=== PATIENT | female | born 1995 | race Caucasian/White ===

== ENCOUNTER 2022-12-11 11:49 | Emergency (ER) | payer OTHER ==
[~2022-12-11] VITALS: Ht 167.6 cm; Wt 71.3 kg
[2022-12-11] MEDS ORDERED: VIEN1TAB PO (11:59)
[2022-12-11] MEDS ORDERED: ONDA4TAB6 PO (11:59)
[2022-12-11 13:16] LABS: BASO % 0.4 % (0.0-1.0); HEMATOCRIT 41.3 % (36.0-47.0); HEMOGLOBIN 13.6 g/dl (12.0-15.5); LYMPH # 1.1 10^3/uL (1.5-5.0); MEAN CORPUSCULAR HEMOGLOBIN 28.3 pg (27.0-33.0); MEAN CORPUSCULAR HGB CONC 32.9 g/dl (32.0-36.5); MONO # 0.2 10^3/uL (0.0-0.8); MONO % 2.9 % (2.0-8.0); NEUTROPHILS # 5.6 10^3/uL (1.5-8.5); NEUTROPHILS % 80.4 % (36.0-66.0); PLATELET COUNT, AUTOMATED 294 10^3/uL (150-450); WHITE BLOOD COUNT 6.9 10^3/uL (4.0-10.0)
[2022-12-11 13:46] LABS: LIPASE 39 U/L (12-53)
[2022-12-11 13:48] LABS: ALBUMIN 4.4 G/DL (3.2-5.2); ALKALINE PHOSPHATASE 51 U/L (46-116); ALT/SGPT 12 U/L (7.0-40); AST/SGOT 11 U/L (<34); BILIRUBIN,DIRECT 0.2 MG/DL (<0.4); BILIRUBIN,TOTAL 0.6 MG/DL (0.3-1.2); BLOOD UREA NITROGEN 6 MG/DL (9-23); CALCIUM LEVEL 9.7 MG/DL (8.5-10.1); CARBON DIOXIDE LEVEL 26 MMOL/L (20-31); CHLORIDE LEVEL 106 MMOL/L (98-107); CREATININE FOR GFR 0.95 MG/DL (0.55-1.30); GLOMERULAR FILTRATION RATE > 60.0 (>60); GLUCOSE, FASTING 84 MG/DL (60-100); POTASSIUM SERUM 4.4 MMOL/L (3.5-5.1); SODIUM LEVEL 141 MMOL/L (136-145); TOTAL PROTEIN 7.5 G/DL (5.7-8.2)
[2022-12-11 13:52] LABS: HCG, SERUM QUALITATIVE NEGATIVE (NEGATIVE)
[2022-12-11] MEDS ORDERED: KETOROLAC 30 MG/ML 1ML VIAL IV ONE (14:15)
[2022-12-11] MEDS ORDERED: NS 1,000 ML IV ONE (14:15)
[2022-12-11] MEDS ORDERED: ISOVUE-370 76% 100ML VIAL As Ordered ONE (14:26)
[2022-12-11 14:45] VITALS: BP 117/70; TEMP 97.8; O2SAT 100
[2022-12-11] MEDS ORDERED: CIPR-249 PO (15:29)
[2022-12-11] MEDS ORDERED: METR-265 PO (15:29)
== END 2022-12-11 15:46 | disposition home or self-care (01) ==
LOC: M ED 11:49
DX: K51.20 Ulcerative (chronic) proctitis without complications (principal); F12.10 Cannabis abuse, uncomplicated
CPT/HCPCS: 74177; 80048; 80076; 83690; 84703; 85025; 96361; 96374; 99284; J1885; Q9967

== ENCOUNTER → 2023-03-20 | Outpatient (CLI) | payer OTHER ==
[~2023-03-20] MED LIST: CIPR-249 PO; E-Z-GAS II EFFERVESCENT PACKET (SODIUM BICARB./CITRIC ACID/SIMETHICONE) As Ordered ONE; E-Z-HD 98% w/w 340GM SUSP BTL As Ordered ONE; E-Z-PAQUE 96% w/w SUSP 176GM BTL As Ordered ONE; METR-265 PO; ONDA4TAB6 PO; VIEN1TAB PO
== END ==
LOC: M RAD 09:18
PROVIDERS: ATTEND Internal Medicine Gastroenterology
DX: K59.00 Constipation, unspecified (principal); R10.9 Unspecified abdominal pain

== ENCOUNTER 2023-07-24 07:45 | Day surgery (SDC) | payer OTHER ==
[~2023-07-24] VITALS: Ht 167.6 cm; Wt 60.0 kg
[~2023-07-24 07:45] MED LIST changes: -E-Z-GAS II EFFERVESCENT PACKET (SODIUM BICARB./CITRIC ACID/SIMETHICONE) As Ordered ONE; -E-Z-HD 98% w/w 340GM SUSP BTL As Ordered ONE; -E-Z-PAQUE 96% w/w SUSP 176GM BTL As Ordered ONE; +ONDA-282 PO; -ONDA4TAB6 PO; +PANT20TA6 PO
[2023-07-24] MEDS ORDERED: propofoL 200 MG/20 ML VIAL As Ordered ONE (08:12)
[2023-07-24] MEDS ORDERED: MIDAZOLAM INJ 2MG/2ML VIAL As Ordered ONE (08:12)
[2023-07-24] MEDS ORDERED: ROCURONIUM BROMIDE 50MG/5ML VIAL As Ordered ONE (08:12)
[2023-07-24] MEDS ORDERED: fentaNYL 100 MCG/2 ML INJECTION As Ordered ONE (08:12)
[2023-07-24] MEDS ORDERED: LIDOCAINE 2% 100MG/5ML SDV (FOR ANES.) As Ordered ONE (08:12)
[2023-07-24 08:24] LABS: HEMATOCRIT 42.8 % (36.0-47.0); HEMOGLOBIN 14.2 g/dl (12.0-15.5)
[2023-07-24] MEDS: LR 1,000 ML IV SCH ×2 (08:29→10:53)
[2023-07-24] MEDS ORDERED: KETOROLAC 60MG 2ML VIAL As Ordered ONE (09:58)
[2023-07-24] MEDS ORDERED: fentaNYL 100 MCG/2 ML INJECTION IV PRN (10:45)
[2023-07-24] MEDS: ONDANSETRON 4MG 2ML VIAL IV PRN (11:03)
[2023-07-24] MEDS: oxyCODONE 5MG TAB PO PRN (11:03)
[2023-07-24] MEDS: HYDROMORPHONE HCL 0.5 MG/ 0.5 ML SYRINGE IV PRN (11:04)
[2023-07-24 11:32] VITALS: BP 129/74; TEMP 97.4; O2SAT 100
== END 2023-07-24 12:25 | disposition home or self-care (01) ==
LOC: M SDC 07:45
PROVIDERS: ATTEND Obstetrics & Gynecology
DX: Z30.2 Encounter for sterilization (principal); F12.10 Cannabis abuse, uncomplicated; K58.8 Other irritable bowel syndrome; R11.0 Nausea; Z79.899 Other long term (current) drug therapy
CPT/HCPCS: 36415; 58661; 81025; 85014; 85018; 88302; J0665; J1100; J1170; J1885; J2250; J2405; J3010

== ENCOUNTER 2024-08-19 06:20 | Day surgery (SDC) | payer OTHER ==
[~2024-08-19] VITALS: Ht 167.6 cm; Wt 57.0 kg
[~2024-08-19 06:20] MED LIST changes: +FEXO-63 PO; +FLUTISP; +GABA-1172 PO
[2024-08-19 06:48] LABS: PLATELET COUNT, AUTOMATED 320 10^3/uL (150-450)
[2024-08-19] MEDS ORDERED: LR 1,000 ML IV SCH (06:55)
[2024-08-19] MEDS ORDERED: LIDOCAINE 2% 100 MG/5 ML SDV (FOR ANES.) As Ordered ONE (07:19)
[2024-08-19] MEDS ORDERED: ONDANSETRON 4MG 2ML VIAL As Ordered ONE (07:19)
[2024-08-19] MEDS ORDERED: dexAMETHasone 4 MG/ML 1 ML VIAL As Ordered ONE (07:19)
[2024-08-19] MEDS ORDERED: ROCURONIUM BROMIDE 50MG/5ML VIAL As Ordered ONE (07:19)
[2024-08-19] MEDS ORDERED: MIDAZOLAM INJ 2 MG/2 ML VIAL As Ordered ONE (07:20)
[2024-08-19] MEDS ORDERED: dexmedeTOMIDine (4 MCG/ML) 200 MCG/50 ML BTL As Ordered ONE (07:20)
[2024-08-19] MEDS: metroNIDAZOLE 500 MG in IV 1 EA IV ONE (07:25)
[2024-08-19] MEDS ORDERED: LIDOCAINE 5% OINT 30 GM TUBE As Ordered ONE (07:42)
[2024-08-19] MEDS: SCOPOLAMINE 1MG TRANSDERMAL PATCH As Ordered ONE (07:43)
[2024-08-19] MEDS: SCOPOLAMINE 1MG TRANSDERMAL PATCH TOP ONE (07:45)
[2024-08-19] MEDS: ceFAZolin SOD 2 GM IV ONCE IV ONE (08:04)
[2024-08-19] MEDS ORDERED: LACRILUBE (AKWA TEARS) OPHTH OINT 3.5 GM As Ordered ONE (08:05)
[2024-08-19] MEDS ORDERED: PHENYLephrine 500MCG 5ML (100MCG/ML) SYRINGE As Ordered ONE (08:05)
[2024-08-19] MEDS ORDERED: ACETAMINOPHEN 1000MG/100ML IV BAG As Ordered ONE (08:05)
[2024-08-19] MEDS ORDERED: KETOROLAC 30 MG/ML 1 ML VIAL As Ordered ONE (08:38)
[2024-08-19] MEDS ORDERED: HYDROmorphone HCL 2 MG/ML 1 ML VIAL As Ordered ONE (08:38)
[2024-08-19] MEDS ORDERED: SUGAMMADEX SODIUM 200 MG/2 ML VIAL As Ordered ONE (08:38)
[2024-08-19] MEDS ORDERED: SUGAMMADEX SODIUM 500 MG/5 ML VIAL As Ordered ONE (08:39)
[2024-08-19] MEDS: ONDANSETRON 4MG 2ML VIAL IV PRN (10:48)
[2024-08-19] MEDS: HYDROMORPHONE HCL 0.5 MG/0.5 ML SYRINGE IV PRN (10:48)
[2024-08-19] MEDS: PROMETHAZINE 25MG/ML 1ML VIAL IV PRN (12:09)
[2024-08-19 13:00] VITALS: BP 132/79; TEMP 98; O2SAT 100
== END 2024-08-19 13:30 | disposition home or self-care (01) ==
LOC: M SDC 06:20
PROVIDERS: ATTEND Obstetrics & Gynecology
DX: N93.9 Abnormal uterine and vaginal bleeding, unspecified (principal); N87.9 Dysplasia of cervix uteri, unspecified; N72 Inflammatory disease of cervix uteri; Z98.51 Tubal ligation status; K58.9 Irritable bowel syndrome, unspecified; Z79.899 Other long term (current) drug therapy; Z79.3 Long term (current) use of hormonal contraceptives
CPT/HCPCS: 36415; 58570; 81025; 85027; 86850; 88307; A6024; J0131; J0665; J0690; J1100; J1171; J1836; J1885; J2250; J2371; J2405; J2550; J3010

== ENCOUNTER → 2025-01-21 | Outpatient (CLI) | payer OTHER | LOC: M WUC 14:46 | DX: M25.512 Pain in left shoulder (principal) ==